=== PATIENT | male | born 1970 | race African-American/Black ===

== ENCOUNTER 2020-05-03 15:06 | Inpatient (IN) | payer OTHER ==
--- NOTE | 2020-05-03 15:34 | BHS.RME ---
Substance Use & Tx History - Substance Use History Alcohol Substance amount: 4 beers 40 oz Frequency of use: Daily Substance route: Oral Date of Last Use: 05/03/20 (started age 14) Cocaine-Crack Substance amount: $40-50 Frequency of use: Daily Substance route: Smoking Date of Last Use: 05/01/20 Nicotine Frequency of use: Daily Substance route: Smoking Date of Last Use: 05/03/20 Physical/Psych/Mental Status - Behavior General Behavior: Increased activity (restlessness, agitation) Eye Contact: Normal - Cooperativeness Cooperativeness: Cooperative - Thinking Thought Processes: Tight, Logical, Goal Directed - Physical Health Problems Is patient presently having any pain?: No Does patient presently have any injuries (include location): No Does patient currently have a fever: No Is patient : No CIWA Nausea/Vomitin Muscle Tremors: 3 Anxiety: 3 Agitation: 3 Paroxysmal Sweats: 2 Orientation: 0-Oriented Tacttile Disturbances: 3-Moderate Itch/Numb/Burn Auditory Disturbances: 0-None Visual Disturbances: 0-None Headache: 0-None Present CIWA-Ar Total Score: 16
[2020-05-03] MEDS ORDERED: ONDANSETRON *ODT* 4 MG TABLET SL PRN (16:00)
[2020-05-03] MEDS ORDERED: MAGNESIUM CITRATE 300 ML BOTTLE PO PRN (16:00)
[2020-05-03] MEDS ORDERED: BISMUTH SUBSALICYLATE 524 MG/30 ML UD PO PRN (16:00)
[2020-05-03] MEDS ORDERED: NICOTINE POLACRILEX 2 MG GUM BUC PRN (16:00)
[2020-05-03] MEDS ORDERED: MENTHOL/PHENOL 1 EACH UD MM PRN (16:00)
[2020-05-03] MEDS ORDERED: IBUPROFEN 400 MG TABLET (FP) PO PRN (16:00)
[2020-05-03] MEDS ORDERED: chlordiazePOXIDE HCL 25 MG CAPSULE PO PRN (16:00)
[2020-05-03] MEDS ORDERED: MAG HYDROX/AL HYDROX/SIMETH 30 ML UNIT-DOSE CUP PO PRN (16:00)
[2020-05-03] MEDS ORDERED: METHOCARBAMOL 500 MG TABLET PO PRN (16:00)
[2020-05-03] MEDS ORDERED: MAGNESIUM HYDROX 2400MG/30ML ORAL SUSPENSION 30 ML CUP PO PRN (16:00)
[2020-05-03] MEDS ORDERED: ACETAMINOPHEN 325 MG TABLET (FP) PO PRN ×2 (16:00)
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
[2020-05-03 16:11] VITALS: BMI 26.1
--- OUTSIDE RECORDS SUMMARY | 2020-05-03 17:12 | XMS ---
:1970 Author Organization [facility] Re-disclosure Warning The records that you are about to access may contain information from federally- assisted alcohol or drug abuse programs. If such information is present, then the following federally mandated warning applies: This information has been disclosed to you from records protected by federal confidentiality rules (42 CFR part 2). The federal rules prohibit you from making any further disclosure of this information unless further disclosure is expressly permitted by the written consent of the person to whom it pertains or as otherwise permitted by 42 CFR part 2. A general authorization for the release of medical or other information is NOT sufficient for this purpose. The Federal rules restrict any use of the information to criminally investigate or prosecute any alcohol or drug abuse patient.The records that you are about to access may contain highly sensitive health information, the redisclosure of which is protected by Article 27-F of the [facility] Public Health law. If you continue you may haveaccess to information: Regarding HIV / AIDS; Provided by facilities licensed or operated by the [facility] Office of Mental Health; or Provided by the [facility] Office for People With Developmental Disabilities. If such information is present, then the following [facility] mandated warning applies: This information has been disclosed to you from confidential records which are protected by state law. State law prohibits you from making any further disclosure of this information without the specific written consent of the person to whom it pertains, or as otherwise permitted by law. Any unauthorized further disclosure in violation of state law may result in a fine or mcfp sentence or both. A general authorization for the release of medical or other information is NOT sufficient authorization for further disclosure. Allergies and Adverse Reactions Type Description Substance Reaction Status Data Source(s ) Propensity to HENDRIX No known allergies hives Active eCW 3 ([facility] [place] adverse reactions (situation) Health Care) Propensity to MUSTARD No known allergies hives Active eCW 3 ([facility] adverse reactions (situation) [facility] Care) Encounters Encounter Providers Location Date Indications Data Source(s ) [facility] [facility] 12/10/2018 eCW3 ([facility] A28 12:00:00 AM Health Care) EDT - 12/10/2018 12:00:00 AM EDT Medications Medication Brand Start Product Dose Route Administrative Pharmacy [facility] Indications Reaction Description Data Name Date Form Instructions Instructions Source(s) DEPAKOTE UNK active DEPAKOTE eCW3 ([facility]) Problems, Conditions, and Diagnoses Code Display Name Description Problem Type Effective Dates Data Source(s) F17.200 Tobacco Tobacco Problem 09/09/2018 eCW3 ([place] dependence dependence 12:00:00 AM [facility] Care) F31.32 Bipolar Bipolar Problem 09/09/2018 eCW3 ([place] affective, affective, 12:00:00 AM [facility] depress, mod depress, mod Care) F31.9 Bipolar affective Bipolar affective Problem 12/18/2016 eCW3 ([place] disorder, disorder, 12:00:00 AM [facility] remission status remission status Ca re) unspecified unspecified Surgeries/Procedures Procedure Description Date Indications Data Source(s) smoking cessation 12/10/2018 eCW3 ([facility] [place] counseling 12:00:00 AM Critical access hospital) Social History Code Duration Value Status Description Data Source(s ) Smoking 12/10/2018 Current Smoker completed Current Smoker eCW3 ( [facility] 12:00:00 AM [facility] Health Ca re) Current Smoker completed Current Smoker eCW3 ( [facility]) Vital Signs ID Date Data Source UNK Name Value Range Interpretation Code Description Data Source(s) Diastolic blood 82 mm[Hg] 82 mm[Hg] eCW3 ([facility]) Systolic blood 145 mm[Hg] 145 mm[Hg] eCW3 ([facility]) Body temperature 97.8 [degF] 97.8 [degF] eCW3 ( [facility]) Heart rate 16 /min 16 /min eCW3 ([facility]) Body mass index 25.98 kg/m2 25.98 kg/m2 eCW3 ([facility] (BMI) [Ratio] [place] [facility]) Body weight 161 [lb_av] 161 [lb_av] eCW3 ([facility]) Body height [in_i] eCW3 ([facility]) Patient Treatment Plan of Care Planned Activity Planned Date Details Description Data Source (s) HERMELINDO [facility] ([facility])
[2020-05-03] MEDS: chlordiazePOXIDE HCL 25 MG CAPSULE PO SCH ×2 (18:07→22:31)
[2020-05-03] MEDS: PRENATAL VITAMINS W/ FOLIC ACID TABLET (FP) PO SCH (18:37)
[2020-05-03] MEDS: hydrOXYzine PAMOATE 25 MG CAPSULE (FP) PO SCH ×2 (18:37→22:32)
[2020-05-03] MEDS: NICOTINE 7 MG/24 HOURS TOPICAL PATCH TD SCH (18:37)
--- OUTSIDE RECORDS SUMMARY | 2020-05-03 18:45 | XMS ---
:1970 Author Organization [facility] Support Name Relationship Address Phone UE Unavailable Unavailable Unavailable LORIE COPELAND SELF / SAME PATIENT [address] [place] [address] Re-disclosure Warning The records that you are [...] is protected by Article 27-F of the [facility] Public Health law. If you continue you may haveaccess to information: Regarding HIV / AIDS; Provided by facilities licensed or operated by the [facility] Office of Mental Health; or Provided by the [facility] Office for People With Developmental Disabilities. If such information is present, then the following [facility] mandated warning applies: This information has [...] law may result in a fine or prison sentence or both. A general authorization for the release of medical or other information is NOT sufficient authorization for further disclosure. Allergies and Adverse Reactions Type Description Substance Reaction Status Data Source(s ) Propensity to HENDRIX No known allergies hives Active W 3 ([facility] adverse reactions (situation) Health Care) Propensity to MUSTARD No known allergies hives Active eCW 3 ([facility] adverse reactions (situation) Health Care) Encounters Encounter Providers Location Date Indications Data Source(s ) [facility] [place] [facility] 12/10/2018 eCW3 ([facility] A28 12:00:00 AM Health Care) EDT - 12/10/2018 12:00:00 AM EDT Medications Medication Brand Start Product Dose Route Administrative Pharmacy [facility] Indications Reaction Description Data Name Date Form Instructions Instructions Source(s) DEPAKOTE UNK active DEPAKOTE eCW3 ([facility]) Insurance Providers Payer name Policy type Policy ID Covered Covered constitution party's Policy P rahul / Coverage constitution party ID relationship to Driscoll Inf ormation type driscoll ELENITA [id number] HEALTH NON CAP Problems, Conditions, and Diagnoses Code Display Name Description Problem Type Effective Dates Data Source(s) F17.200 Tobacco Tobacco Problem 09/09/2018 eCW3 ([place] dependence dependence 12:00:00 AM [facility] Care) F31.32 Bipolar Bipolar Problem 09/09/2018 eCW3 ([place] affective, affective, 12:00:00 AM [facility] depress, mod depress, mod Care) F31.9 Bipolar affective Bipolar affective Problem 12/18/2016 eCW3 ([place] disorder, disorder, 12:00:[address] [facility] remission status remission status Ca re) unspecified unspecified Surgeries/Procedures Procedure Description Date Indications Data Source(s) smoking cessation 12/10/2018 eCW3 ([facility] counseling 12:00:00 AM [facility]) Social History Code Duration Value Status Description Data Source(s ) Smoking 12/10/2018 Current Smoker completed Current Smoker eCW3 ( [facility] 12:00:00 AM [facility] Health Ca re) Current Smoker completed Current Smoker eCW3 ( [facility]) Vital Signs ID Date Data Source UNK Name Value Range Interpretation Code Description Data Source(s) Diastolic blood 82 mm[Hg] 82 mm[Hg] eCW3 ([facility]) Systolic blood 145 mm[Hg] 145 mm[Hg] eCW3 ([facility]) Body temperature 97.8 [degF] 97.8 [degF] eCW3 ( [facility]) Heart rate 16 /min 16 /min eCW3 ([facility]) Body mass index 25.98 kg/m2 25.98 kg/m2 eCW3 (Teodora garcia (BMI) [Ratio] [facility]) Body weight 161 [lb_av] 161 [lb_av] eCW3 ([facility]) Body height [in_i] eCW3 ([facility]) Patient Treatment Plan of Care Planned Activity Planned Date Details Description Data Source (s) HERMELINDO eCW3 ([facility])
[2020-05-03] MEDS: THIAMINE HCL 100 MG TABLET (FP) PO SCH (22:31)
[2020-05-03] MEDS: MELATONIN 5 MG TABLETS PO SCH (22:33)
[2020-05-04] MEDS: hydrOXYzine PAMOATE 25 MG CAPSULE (FP) PO SCH ×2 (05:16→10:21)
[2020-05-04] MEDS: chlordiazePOXIDE HCL 25 MG CAPSULE PO SCH ×4 (05:17→21:58)
[2020-05-04] MEDS: NICOTINE 7 MG/24 HOURS TOPICAL PATCH TD SCH (10:18)
[2020-05-04] MEDS: PRENATAL VITAMINS W/ FOLIC ACID TABLET (FP) PO SCH (10:18)
[2020-05-04 10:26] LABS: HEMATOCRIT 43.1 % (35.4-49); HEMOGLOBIN 13.9 GM/dL (11.7-16.9); MCH 29.3 pg (25.7-33.7); MCHC 32.3 g/dl (32.0-35.9); MEAN CELL VOLUME 90.8 fl (80-96); PLATELET COUNT 278 K/MM3 (134-434); RBC 4.75 M/mm3 (4.00-5.60); RDW 14.8 % (11.9-15.9); WHITE BLOOD COUNT 6.9 K/mm3 (4.0-10.0)
[2020-05-04 10:48] LABS: POTASSIUM 4.8 mmol/L (3.5-5.1)
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
[2020-05-04 11:06] LABS: ALBUMIN 3.7 g/dl (3.4-5.0); BLOOD UREA NITROGEN 20.2 mg/dL (7-18); CALCIUM 9.2 mg/dL (8.5-10.1); TOT PROT 6.8 g/dl (6.4-8.2)
[2020-05-04] MEDS ORDERED: PNEUMOC 13-VAL CONJ-DIP CRM/PF 0.5 ML DISP.SYRIN IM ONE (12:00)
[2020-05-04] MEDS ORDERED: hydrOXYzine PAMOATE 25 MG CAPSULE (FP) PO PRN (12:11)
--- NOTE | 2020-05-04 12:23 | PN ---
S CIWA - CIWA Score Nausea/Vomitin-No Nausea/No Vomiting Muscle Tremors: 3 Anxiety: 2 Agitation: 3 Paroxysmal Sweats: 2 Orientation: 0-Oriented Tacttile Disturbances: 0-None Auditory Disturbances: 0-None Visual Disturbances: 0-None Headache: 0-None Present CIWA-Ar Total Score: 10 S Progress Note (SOAP) Subjective: tired sweats interrupted sleep body aches Objective: 05/04/20 12:13 Vital Signs Temperature 97.1 F L 05/04/20 09:03 Pulse Rate 63 05/04/20 09:03 Respiratory Rate 18 05/04/20 09:03 Blood Pressure 145/75 05/04/20 09:03 O2 Sat by Pulse Oximetry (%) 94 L 05/04/20 05:08 Laboratory Tests 05/04/20 05/04/20 05/04/20 07:45 07:45 07:45 WBC 6.9 RBC 4.75 Hgb 13.9 Hct 43.1 MCV 90.8 MCH 29.3 MCHC 32.3 RDW 14.8 Plt Count 278 MPV 8.0 Sodium 141 Potassium 4.8 Chloride 108 H Carbon Dioxide 26 Anion Gap 7 L BUN 20.2 H Creatinine 1.0 Est GFR (CKD-EPI)AfAm 101.26 Est GFR (CKD-EPI)NonAf 87.37 Random Glucose 79 Calcium 9.2 Total Bilirubin 1.0 AST 17 ALT 30 Alkaline Phosphatase 52 Total Protein 6.8 Albumin 3.7 Syphilis Serology Non-reactive aaox3 lying in bed no acute distress labs noted Assessment: 05/04/20 12:23 withdrawals Plan: continue detox increase fluids
[2020-05-04] MEDS ORDERED: MASKS NR ONE (18:19)
[2020-05-04] MEDS: THIAMINE HCL 100 MG TABLET (FP) PO SCH (21:58)
[2020-05-04] MEDS: traZODone HCL 100 MG TABLET (FP) PO SCH (21:58)
[2020-05-04] MEDS: MELATONIN 5 MG TABLETS PO SCH (21:59)
[2020-05-05] MEDS: chlordiazePOXIDE HCL 25 MG CAPSULE PO SCH ×4 (05:16→22:44)
[2020-05-05] MEDS: NICOTINE 7 MG/24 HOURS TOPICAL PATCH TD SCH (10:26)
[2020-05-05] MEDS: PRENATAL VITAMINS W/ FOLIC ACID TABLET (FP) PO SCH (10:26)
--- NOTE | 2020-05-05 11:09 | PN ---
[facility] CIWA - CIWA Score Nausea/Vomitin-No Nausea/No Vomiting Muscle Tremors: 2 Anxiety: 1-Mildly Anxious Agitation: 1-Slight > Activity Paroxysmal Sweats: 1-Minimal Palms Moist Orientation: 0-Oriented Tacttile Disturbances: 0-None Auditory Disturbances: 0-None Visual Disturbances: 0-None Headache: 0-None Present CIWA-Ar Total Score: 5 BHS Progress Note (SOAP) Subjective: feeling fine little sweats Objective: 05/05/20 11:08 Vital Signs Temperature 97.1 F L 05/05/20 08:34 Pulse Rate 69 05/05/20 08:34 Respiratory Rate 18 05/05/20 08:34 Blood Pressure 135/80 05/05/20 08:34 O2 Sat by Pulse Oximetry (%) 99 05/05/20 08:34 Laboratory Tests 05/03/20 05/04/20 05/04/20 16:00 07:45 07:45 WBC 6.9 RBC 4.75 Hgb 13.9 Hct 43.1 MCV 90.8 MCH 29.3 MCHC 32.3 RDW 14.8 Plt Count 278 MPV 8.0 Sodium Potassium Chloride Carbon Dioxide Anion Gap BUN Creatinine Est GFR (CKD-EPI)AfAm Est GFR (CKD-EPI)NonAf Random Glucose Calcium Total Bilirubin AST ALT Alkaline Phosphatase Total Protein Albumin Syphilis Serology Non-reactive COVID-19 (ELVIE) Not detected 05/04/20 07:45 WBC RBC Hgb Hct MCV MCH MCHC RDW Plt Count MPV Sodium 141 Potassium 4.8 Chloride 108 H Carbon Dioxide 26 Anion Gap 7 L BUN 20.2 H Creatinine 1.0 Est GFR (CKD-EPI)AfAm 101.26 Est GFR (CKD-EPI)NonAf 87.37 Random Glucose 79 Calcium 9.2 Total Bilirubin 1.0 AST 17 ALT 30 Alkaline Phosphatase 52 Total Protein 6.8 Albumin 3.7 Syphilis Serology COVID-19 (ELVIE) aaox3 ambulating no acute distress Assessment: 05/05/20 11:09 mild withdrawals Plan: continue detox
[2020-05-05] MEDS ORDERED: PANTOPRAZOLE 40 MG TABLET PO ONE (18:51)
--- NOTE | 2020-05-05 18:58 | PN ---
[facility] Progress Note Note: Patient was seen and examined by bedside due to a call for epigastric pain. Patient had tenderness in the epigastric region radiating to his RUQ with mildly distended abdomen and hyperactive bowel sounds. Patient stated he has been feeling nauseas this evening. Order was placed for Protonix 40mg PO Once.
[2020-05-05] MEDS: traZODone HCL 100 MG TABLET (FP) PO SCH (22:44)
[2020-05-05] MEDS: MELATONIN 5 MG TABLETS PO SCH (22:44)
[2020-05-05] MEDS: THIAMINE HCL 100 MG TABLET (FP) PO SCH (22:44)
[2020-05-06] MEDS ORDERED: chlordiazePOXIDE HCL 10 MG CAPSULE PO PRN
[2020-05-06] MEDS: chlordiazePOXIDE HCL 10 MG CAPSULE PO SCH ×2 (06:06→10:32)
[2020-05-06] MEDS: PRENATAL VITAMINS W/ FOLIC ACID TABLET (FP) PO SCH (10:30)
[2020-05-06] MEDS: NICOTINE 7 MG/24 HOURS TOPICAL PATCH TD SCH (10:31)
--- NOTE | 2020-05-06 11:19 | PN ---
S CIWA - CIWA Score Nausea/Vomitin-No Nausea/No Vomiting Muscle Tremors: 1-None Visible, but [place] Anxiety: 1-Mildly Anxious Agitation: 0-Normal Activity Paroxysmal Sweats: No Perspiration Orientation: 0-Oriented Tacttile Disturbances: 0-None Auditory Disturbances: 0-None Visual Disturbances: 0-None Headache: 0-None Present CIWA-Ar Total Score: 2 [facility] Progress Note (SOAP) Subjective: no withdrawals feeling better want to go to rehab today Objective: 05/06/20 11:18 Vital Signs Temperature 99.1 F 05/06/20 05:56 Pulse Rate 79 05/06/20 05:56 Respiratory Rate 16 05/06/20 05:56 Blood Pressure 112/67 05/06/20 05:56 O2 Sat by Pulse Oximetry (%) 96 05/06/20 05:56 Laboratory Tests 05/03/20 05/04/20 05/04/20 16:00 07:45 07:45 WBC 6.9 RBC 4.75 Hgb 13.9 Hct 43.1 MCV 90.8 MCH 29.3 MCHC 32.3 RDW 14.8 Plt Count 278 MPV 8.0 Sodium Potassium Chloride Carbon Dioxide Anion Gap BUN Creatinine Est GFR (CKD-EPI)AfAm Est GFR (CKD-EPI)NonAf Random Glucose Calcium Total Bilirubin AST ALT Alkaline Phosphatase Total Protein Albumin Syphilis Serology Non-reactive COVID-19 ([facility]) Not detected 05/04/20 07:45 WBC RBC Hgb Hct MCV MCH MCHC RDW Plt Count MPV Sodium 141 Potassium 4.8 Chloride 108 H Carbon Dioxide 26 Anion Gap 7 L BUN 20.2 H Creatinine 1.0 Est GFR (CKD-EPI)AfAm 101.26 Est GFR (CKD-EPI)NonAf 87.37 Random Glucose 79 Calcium 9.2 Total Bilirubin 1.0 AST 17 ALT 30 Alkaline Phosphatase 52 Total Protein 6.8 Albumin 3.7 Syphilis Serology COVID-19 ([facility]) aaox3 ambulating no acute distress Assessment: 05/06/20 11:18 no s/s of withdrawal noted Plan: d/c to rehab today
--- NOTE | 2020-05-06 11:20 | DS ---
[facility] Detox Discharge Summary Admission Date: 05/03/20 Discharge Date: 05/06/20 - History Present History: Alcohol Dependence, Cannabis Dependence, Cocaine Dependence - Physical Exam Results Vital Signs: Vital Signs Temperature 99.1 F 05/06/20 05:56 Pulse Rate 79 05/06/20 05:56 Respiratory Rate 16 05/06/20 05:56 Blood Pressure 112/67 05/06/20 05:56 O2 Sat by Pulse Oximetry (%) 96 05/06/20 05:56 Pertinent Admission Physical Exam Findings: Vital Signs Temperature 99.1 F 05/06/20 05:56 Pulse Rate 79 05/06/20 05:56 Respiratory Rate 16 05/06/20 05:56 Blood Pressure 112/67 05/06/20 05:56 O2 Sat by Pulse Oximetry (%) 96 05/06/20 05:56 Laboratory Tests 05/03/20 05/04/20 05/04/20 16:00 07:45 07:45 WBC 6.9 RBC 4.75 Hgb 13.9 Hct 43.1 MCV 90.8 MCH 29.3 MCHC 32.3 RDW 14.8 Plt Count 278 MPV 8.0 Sodium Potassium Chloride Carbon Dioxide Anion Gap BUN Creatinine Est GFR (CKD-EPI)AfAm Est GFR (CKD-EPI)NonAf Random Glucose Calcium Total Bilirubin AST ALT Alkaline Phosphatase Total Protein Albumin Syphilis Serology Non-reactive COVID-19 ([facility]) Not detected 05/04/20 07:45 WBC RBC Hgb Hct MCV MCH MCHC RDW Plt Count MPV Sodium 141 Potassium 4.8 Chloride 108 H Carbon Dioxide 26 Anion Gap 7 L BUN 20.2 H Creatinine 1.0 Est GFR (CKD-EPI)AfAm 101.26 Est GFR (CKD-EPI)NonAf 87.37 Random Glucose 79 Calcium 9.2 Total Bilirubin 1.0 AST 17 ALT 30 Alkaline Phosphatase 52 Total Protein 6.8 Albumin 3.7 Syphilis Serology COVID-19 ([facility]) aaox3 ambulating no acute distress lungs CTA - Treatment Hospital Course: Detox Protocol Followed, Detoxed Safely, Responded well, Discharged Condition Good, Rehab Referral Accepted - Medication Discharge Medications: Ambulatory Orders Benztropine Mesylate [Cogentin -] 0.5 mg PO BID #60 tablet 05/03/16 Risperidone [Risperdal] 1 mg PO BID #60 tablet 05/03/16 Divalproex [Depakote -] 500 mg PO BID 05/03/20 - Diagnosis (1) Alcohol dependence with uncomplicated withdrawal Current Visit: Yes Status: Acute (2) Cannabis dependence Current Visit: Yes Status: Acute (3) Cocaine dependence Current Visit: Yes Status: Acute Qualifiers: Substance use status: uncomplicated Qualified Code(s): F14.20 - Cocaine dependence, uncomplicated (4) Nicotine dependence Current Visit: Yes Status: Chronic Qualifiers: Nicotine product type: cigarettes Substance use status: uncomplicated Qualified Code(s): F17.210 - Nicotine dependence, cigarettes, uncomplicated (5) Anemia Current Visit: Yes Status: Resolved (6) Atypical chest pain Current Visit: No Status: Acute (7) Chronic sinusitis Current Visit: No Status: Acute (8) Substance induced mood disorder Current Visit: No Status: Acute (9) Substance-induced sleep disorder Current Visit: No Status: Acute (10) Weight loss Current Visit: No Status: Acute (11) Bipolar disorder Current Visit: No Status: Chronic (12) S/P craniotomy Current Visit: No Status: Resolved - AMA Did Patient Leave Against Medical Advice: No
[2020-05-06 13:11] VITALS: BP 143/73; PULSE 70; TEMP 98
[2020-05-07] MEDS ORDERED: chlordiazePOXIDE HCL 10 MG CAPSULE PO SCH (05:00)
[2020-05-08] MEDS ORDERED: chlordiazePOXIDE HCL 10 MG CAPSULE PO ONE (05:00)
== END 2020-05-06 15:36 | disposition other institution (70) | DRG 774 ==
LOC: YASAS 15:06 → Y6N 16:23
PROVIDERS: ADMIT Allergy & Immunology; ATTEND Allergy & Immunology
PROC: HZ2ZZZZ Detoxification Services for Substance Abuse Treatment (ICD-10-PCS; principal; 2020-05-03)
DX: F10.230 Alcohol dependence with withdrawal, uncomplicated (principal); F14.20 Cocaine dependence, uncomplicated; F12.20 Cannabis dependence, uncomplicated; F17.210 Nicotine dependence, cigarettes, uncomplicated; F19.282 Other psychoactive substance dependence with psychoactive substance-induced sleep disorder; F19.24 Other psychoactive substance dependence with psychoactive substance-induced mood disorder; F31.9 Bipolar disorder, unspecified; J32.9 Chronic sinusitis, unspecified; R07.89 Other chest pain; R10.13 Epigastric pain; R63.4 Abnormal weight loss; Z68.26 Body mass index [BMI] 26.0-26.9, adult; Z86.2 Personal history of diseases of the blood and blood-forming organs and certain disorders involving the immune mechanism; Z98.890 Other specified postprocedural states; Z91.018 Allergy to other foods
CPT/HCPCS: 36415; 80053; 85027; 86780; 87389; U0003

== ENCOUNTER 2020-05-06 15:42 | Inpatient (IN) | payer OTHER ==
--- NOTE | 2020-05-06 15:04 | HP ---
[facility] Rehab Assess/Revision - Admission History Admitted to Rehab from[facility] - Findings Detox History & Physical reviewed: Yes Concur with findings: Yes Inpatient Rehab Admission - Rehab Decision to Admit Inpatient rehab admission?: Yes - Initial Determination Are CD services needed?: Yes Free of communicable disease: Yes Not in need of hospitalization: Yes - Rehab Admission Criteria Previous failed treatment: Yes Poor recovery environment: Yes Comorbidities: Yes Lacks judgement: Yes Patient is meeting Inpatient Rehab admission criteria:: Yes
[~2020-05-06 15:42] MED LIST: ACETAMINOPHEN 325 MG TABLET (FP) PO PRN; IBUPROFEN 400 MG TABLET (FP) PO PRN; LOPERAMIDE HCL 2 MG CAPSULE PO PRN; MAG HYDROX/AL HYDROX/SIMETH 30 ML UNIT-DOSE CUP PO PRN; MAGNESIUM CITRATE 300 ML BOTTLE PO PRN; MAGNESIUM HYDROX 2400MG/30ML ORAL SUSPENSION 30 ML CUP PO PRN; MENTHOL/PHENOL 1 EACH UD MM PRN; NICOTINE POLACRILEX 2 MG GUM BUC PRN; P-EPHED 60MG/TRIPROLIDI 2.5MG TABLET PO PRN; guaiFENesin 200 MG/10 ML 10 ML UNIT-DOSE CUPS PO PRN; hydrOXYzine PAMOATE 25 MG CAPSULE (FP) PO PRN
[2020-05-06 17:44] VITALS: BP 113/69; PULSE 78; TEMP 98.4
--- NOTE | 2020-05-06 18:31 | PN ---
[facility] Progress Note Note: Patient transferred to rehab from , a few hours ago and decided not to stay. Patient was early remission for alcohol use disorder. Patient left unit AMA prior to being seen by this provider.
--- NOTE | 2020-05-06 18:32 | DS ---
[facility] Detox Discharge Summary Admission Date: 05/06/20 Discharge Date: 05/06/20 - Physical Exam Results Vital Signs: Vital Signs Temperature 98.4 F 05/06/20 15:43 Pulse Rate 78 05/06/20 15:43 Respiratory Rate 18 05/06/20 15:43 Blood Pressure 113/69 05/06/20 15:43 O2 Sat by Pulse Oximetry (%) 98 05/06/20 15:43 - Medication Discharge Medications: Ambulatory Orders Benztropine Mesylate [Cogentin -] 0.5 mg PO BID #60 tablet 05/03/16 Risperidone [Risperdal] 1 mg PO BID #60 tablet 05/03/16 Divalproex [Depakote -] 500 mg PO BID 05/03/20
--- NOTE | 2020-05-06 18:33 | DS ---
[facility] Rehab Discharge Summary - [facility] Rehab Discharge Summary Admission Date: 05/06/20 Discharge Date: 05/06/20 - History Present History: Alcohol dependence, Cannabis dependence, Cocaine dependence - Discharge Physical Exam Vital Signs: Vital Signs Temperature 98.4 F 05/06/20 15:43 Pulse Rate 78 05/06/20 15:43 Respiratory Rate 18 05/06/20 15:43 Blood Pressure 113/69 05/06/20 15:43 O2 Sat by Pulse Oximetry (%) 98 05/06/20 15:43 - Treatment Discharge Condition: Discharge condition good (Patient transferred to rehab from , a few hours ago and decided not to stay. Patient left unit AMA prior to being seen by this provider.) - Medication Discharge Medications: Ambulatory Orders Benztropine Mesylate [Cogentin -] 0.5 mg PO BID #60 tablet 05/03/16 Risperidone [Risperdal] 1 mg PO BID #60 tablet 05/03/16 Divalproex [Depakote -] 500 mg PO BID 05/03/20 - Medication-Assisted Treatment (MAT) Medication-Assisted Treatment (MAT): No - Discharge Instructions Diet, activity, other medical instructions: Diet: Activity: Other medical instructions: - Diagnosis (1) Moderate alcohol dependence in early remission Status: Acute (2) Cannabis dependence Status: Chronic (3) Cocaine dependence Status: Chronic Qualifiers: Substance use status: uncomplicated Qualified Code(s): F14.20 - Cocaine dependence, uncomplicated (4) Nicotine dependence Status: Chronic Qualifiers: Nicotine product type: cigarettes Substance use status: uncomplicated Qualified Code(s): F17.210 - Nicotine dependence, cigarettes, uncomplicated - Follow-up Referral Minutes to complete discharge: 15 - AMA Did Patient Leave Against Medical Advice: Yes Additional Comments: Patient transferred to rehab from , a few hours ago and decided not to stay. Patient left unit AMA prior to being seen by this provider.
[2020-05-06] MEDS ORDERED: MELATONIN 5 MG TABLETS PO SCH (22:00)
[2020-05-06] MEDS ORDERED: THIAMINE HCL 100 MG TABLET (FP) PO SCH (22:00)
[2020-05-07] MEDS ORDERED: PRENATAL VITAMINS W/ FOLIC ACID TABLET (FP) PO SCH (10:00)
[2020-05-07] MEDS ORDERED: NICOTINE 21 MG/24 HOURS TOPICAL PATCH TD SCH (10:00)
== END 2020-05-06 18:30 | disposition left against medical advice (07) | DRG 770 ==
LOC: YASAS 15:42 → Y5N 15:43
PROVIDERS: ADMIT Allergy & Immunology; ATTEND Allergy & Immunology
PROC: HZ42ZZZ Group Counseling for Substance Abuse Treatment, Cognitive-Behavioral (ICD-10-PCS; principal; 2020-05-06)
DX: F10.20 Alcohol dependence, uncomplicated (principal); F14.20 Cocaine dependence, uncomplicated; F12.20 Cannabis dependence, uncomplicated; F17.210 Nicotine dependence, cigarettes, uncomplicated

== ENCOUNTER 2020-07-18 10:48 | Inpatient (IN) | payer OTHER ==
[2020-07-18 11:49] VITALS: BMI 29.2
[2020-07-18] MEDS ORDERED: IBUPROFEN 400 MG TABLET (FP) PO PRN (12:27)
[2020-07-18] MEDS ORDERED: METHOCARBAMOL 500 MG TABLET PO PRN (12:27)
[2020-07-18] MEDS ORDERED: NICOTINE POLACRILEX 2 MG GUM BUC PRN (12:27)
[2020-07-18] MEDS ORDERED: BISMUTH SUBSALICYLATE 262 MG/15 ML BTL PO PRN (12:27)
[2020-07-18] MEDS ORDERED: ACETAMINOPHEN 325 MG TABLET (FP) PO PRN ×2 (12:27)
[2020-07-18] MEDS ORDERED: ONDANSETRON *ODT* 4 MG TABLET SL PRN (12:27)
[2020-07-18] MEDS ORDERED: MAG HYDROX/AL HYDROX/SIMETH 30 ML UNIT-DOSE CUP PO PRN (12:27)
[2020-07-18] MEDS ORDERED: MAGNESIUM CITRATE 300 ML BOTTLE PO PRN (12:27)
[2020-07-18] MEDS ORDERED: MAGNESIUM HYDROX 2400MG/30ML ORAL SUSPENSION 30 ML CUP PO PRN (12:27)
[2020-07-18] MEDS ORDERED: MENTHOL/PHENOL 1 EACH UD MM PRN (12:27)
[2020-07-18] MEDS: NICOTINE 21 MG/24 HOURS TOPICAL PATCH TD SCH (13:15)
[2020-07-18] MEDS: hydrOXYzine PAMOATE 25 MG CAPSULE (FP) PO SCH ×4 (13:15→22:50)
[2020-07-18] MEDS: chlordiazePOXIDE HCL 25 MG CAPSULE PO PRN (13:15)
[2020-07-18 14:01] LABS: HEMATOCRIT 42.6 % (35.4-49); HEMOGLOBIN 13.4 GM/dL (11.7-16.9); MCH 26.9 pg (25.7-33.7); MCHC 31.5 g/dl (32.0-35.9); MEAN CELL VOLUME 85.4 fl (80-96); MEAN PLT VOLUME 7.7 fl (7.5-11.1); PLATELET COUNT 293 K/MM3 (134-434); RBC 4.99 M/mm3 (4.00-5.60); RDW 14.3 % (11.9-15.9); WHITE BLOOD COUNT 6.5 K/mm3 (4.0-10.0)
[2020-07-18 14:02] LABS: POTASSIUM 4.3 mmol/L (3.5-5.1)
[2020-07-18 14:04] LABS: BLOOD UREA NITROGEN 26.7 mg/dL (7-18); CALCIUM 9.5 mg/dL (8.5-10.1)
[2020-07-18 14:07] LABS: CREATININE 1.3 mg/dL (0.55-1.3)
[2020-07-18 14:09] LABS: BILIRUBIN,TOTAL 0.5 mg/dL (0.2-1); TOT PROT 7.2 g/dl (6.4-8.2)
[2020-07-18] MEDS: chlordiazePOXIDE HCL 25 MG CAPSULE PO SCH ×3 (17:20→22:49)
[2020-07-18] MEDS: MELATONIN 5 MG TABLETS PO SCH ×2 (22:26→22:50)
[2020-07-18] MEDS: THIAMINE HCL 100 MG TABLET (FP) PO SCH ×2 (22:27→22:50)
[2020-07-19] MEDS: hydrOXYzine PAMOATE 25 MG CAPSULE (FP) PO SCH ×5 (05:38→22:47)
[2020-07-19] MEDS: chlordiazePOXIDE HCL 25 MG CAPSULE PO SCH ×4 (05:38→22:47)
[2020-07-19] MEDS: PRENATAL VITAMINS W/ FOLIC ACID TABLET (FP) PO SCH (10:28)
[2020-07-19] MEDS: NICOTINE 21 MG/24 HOURS TOPICAL PATCH TD SCH (10:29)
[2020-07-19] MEDS: THIAMINE HCL 100 MG TABLET (FP) PO SCH (22:46)
[2020-07-19] MEDS: risperiDONE 1 MG TABLET PO SCH (22:47)
[2020-07-19] MEDS: traZODone HCL 50 MG TABLET (FP) PO SCH (22:48)
[2020-07-19] MEDS: MELATONIN 5 MG TABLETS PO SCH (22:48)
[2020-07-20] MEDS: hydrOXYzine PAMOATE 25 MG CAPSULE (FP) PO SCH ×5 (07:04→22:54)
[2020-07-20] MEDS: chlordiazePOXIDE HCL 25 MG CAPSULE PO SCH ×4 (07:04→22:42)
[2020-07-20] MEDS: chlordiazePOXIDE HCL 25 MG CAPSULE PO PRN (08:47)
[2020-07-20] MEDS: risperiDONE 1 MG TABLET PO SCH ×2 (10:31→22:54)
[2020-07-20] MEDS: PRENATAL VITAMINS W/ FOLIC ACID TABLET (FP) PO SCH (10:31)
[2020-07-20] MEDS: BENZTROPINE MESYLATE 1 MG TABLET PO SCH (10:31)
[2020-07-20] MEDS: NICOTINE 21 MG/24 HOURS TOPICAL PATCH TD SCH (10:32)
[2020-07-20] MEDS: MELATONIN 5 MG TABLETS PO SCH (22:54)
[2020-07-20] MEDS: THIAMINE HCL 100 MG TABLET (FP) PO SCH (22:54)
[2020-07-20] MEDS: traZODone HCL 50 MG TABLET (FP) PO SCH (22:54)
[2020-07-21] MEDS ORDERED: chlordiazePOXIDE HCL 10 MG CAPSULE PO PRN
[2020-07-21] MEDS: chlordiazePOXIDE HCL 10 MG CAPSULE PO SCH ×4 (05:41→22:32)
[2020-07-21] MEDS: hydrOXYzine PAMOATE 25 MG CAPSULE (FP) PO SCH ×5 (05:41→22:32)
[2020-07-21] MEDS: risperiDONE 1 MG TABLET PO SCH ×2 (10:01→22:32)
[2020-07-21] MEDS: PRENATAL VITAMINS W/ FOLIC ACID TABLET (FP) PO SCH (10:01)
[2020-07-21] MEDS: BENZTROPINE MESYLATE 1 MG TABLET PO SCH (10:02)
[2020-07-21] MEDS: NICOTINE 21 MG/24 HOURS TOPICAL PATCH TD SCH (10:04)
[2020-07-21 14:11] LABS: HIV INTERPRETATION NEGATIVE (NEGATIVE)
[2020-07-21] MEDS ORDERED: DIVALPROEX SODIUM 500 MG TABLET E.C. PO SCH (22:00)
[2020-07-21] MEDS: DIVALPROEX SODIUM 250 MG TABLET E.C. PO SCH (22:32)
[2020-07-21] MEDS: THIAMINE HCL 100 MG TABLET (FP) PO SCH (22:32)
[2020-07-21] MEDS: MELATONIN 5 MG TABLETS PO SCH (22:32)
[2020-07-21] MEDS: traZODone HCL 50 MG TABLET (FP) PO SCH (22:33)
[2020-07-22] MEDS: hydrOXYzine PAMOATE 25 MG CAPSULE (FP) PO SCH ×5 (06:35→22:12)
[2020-07-22] MEDS: chlordiazePOXIDE HCL 10 MG CAPSULE PO SCH ×2 (06:36→17:24)
[2020-07-22] MEDS: BENZTROPINE MESYLATE 1 MG TABLET PO SCH (10:20)
[2020-07-22] MEDS: risperiDONE 1 MG TABLET PO SCH ×2 (10:20→22:12)
[2020-07-22] MEDS: NICOTINE 21 MG/24 HOURS TOPICAL PATCH TD SCH (10:20)
[2020-07-22] MEDS: DIVALPROEX SODIUM 250 MG TABLET E.C. PO SCH ×2 (10:20→22:12)
[2020-07-22] MEDS: PRENATAL VITAMINS W/ FOLIC ACID TABLET (FP) PO SCH (10:20)
[2020-07-22] MEDS: traZODone HCL 50 MG TABLET (FP) PO SCH (22:12)
[2020-07-22] MEDS: THIAMINE HCL 100 MG TABLET (FP) PO SCH (22:12)
[2020-07-22] MEDS: MELATONIN 5 MG TABLETS PO SCH (22:12)
[2020-07-23] MEDS ORDERED: chlordiazePOXIDE HCL 10 MG CAPSULE PO ONE (05:00)
[2020-07-23] MEDS: hydrOXYzine PAMOATE 25 MG CAPSULE (FP) PO SCH ×3 (06:26→13:14)
[2020-07-23] MEDS: DIVALPROEX SODIUM 250 MG TABLET E.C. PO SCH (10:08)
[2020-07-23] MEDS: risperiDONE 1 MG TABLET PO SCH (10:08)
[2020-07-23] MEDS: PRENATAL VITAMINS W/ FOLIC ACID TABLET (FP) PO SCH (10:08)
[2020-07-23] MEDS: BENZTROPINE MESYLATE 1 MG TABLET PO SCH (10:09)
[2020-07-23] MEDS: NICOTINE 21 MG/24 HOURS TOPICAL PATCH TD SCH (10:09)
[2020-07-23 13:11] VITALS: BP 156/87; PULSE 110; TEMP 97.8
== END 2020-07-23 13:45 | disposition other institution (70) | DRG 774 ==
LOC: YASAS 10:48 → Y3N 12:15
PROVIDERS: ADMIT Allergy & Immunology; ATTEND Allergy & Immunology
PROC: HZ2ZZZZ Detoxification Services for Substance Abuse Treatment (ICD-10-PCS; principal; 2020-07-18)
DX: F10.230 Alcohol dependence with withdrawal, uncomplicated (principal); F14.20 Cocaine dependence, uncomplicated; F12.20 Cannabis dependence, uncomplicated; F17.210 Nicotine dependence, cigarettes, uncomplicated; F19.24 Other psychoactive substance dependence with psychoactive substance-induced mood disorder; F19.282 Other psychoactive substance dependence with psychoactive substance-induced sleep disorder; F31.89 Other bipolar disorder; R73.09 Other abnormal glucose; G47.00 Insomnia, unspecified; Z91.018 Allergy to other foods; Z91.19 Patient's noncompliance with other medical treatment and regimen
CPT/HCPCS: 36415; 80053; 82947; 85027; 86780; 87389; C9803; J2794; U0003

== ENCOUNTER 2020-07-23 13:31 | Inpatient (IN) | payer OTHER ==
[2020-07-23] MEDS ORDERED: MENTHOL/PHENOL 1 EACH UD MM PRN (14:32)
[2020-07-23] MEDS ORDERED: NICOTINE POLACRILEX 2 MG GUM BUC PRN (14:32)
[2020-07-23] MEDS ORDERED: LOPERAMIDE HCL 2 MG CAPSULE PO PRN (14:32)
[2020-07-23] MEDS ORDERED: ACETAMINOPHEN 325 MG TABLET (FP) PO PRN (14:32)
[2020-07-23] MEDS ORDERED: MAGNESIUM CITRATE 300 ML BOTTLE PO PRN (14:32)
[2020-07-23] MEDS ORDERED: MAG HYDROX/AL HYDROX/SIMETH 30 ML UNIT-DOSE CUP PO PRN (14:32)
[2020-07-23] MEDS ORDERED: P-EPHED 60MG/TRIPROLIDI 2.5MG TABLET PO PRN (14:32)
[2020-07-23] MEDS ORDERED: guaiFENesin 200 MG/10 ML 10 ML UNIT-DOSE CUPS PO PRN (14:32)
[2020-07-23] MEDS ORDERED: MAGNESIUM HYDROX 2400MG/30ML ORAL SUSPENSION 30 ML CUP PO PRN (14:32)
[2020-07-23] MEDS ORDERED: IBUPROFEN 400 MG TABLET (FP) PO PRN (14:32)
[2020-07-23] MEDS: THIAMINE HCL 100 MG TABLET (FP) PO SCH (21:47)
[2020-07-23] MEDS: MELATONIN 5 MG TABLETS PO SCH (21:47)
[2020-07-23] MEDS: hydrOXYzine PAMOATE 25 MG CAPSULE (FP) PO PRN (21:48)
[2020-07-24] MEDS: PRENATAL VITAMINS W/ FOLIC ACID TABLET (FP) PO SCH (09:33)
[2020-07-24] MEDS: NICOTINE 7 MG/24 HOURS TOPICAL PATCH TD SCH (09:33)
[2020-07-24] MEDS ORDERED: NICOTINE 7 MG/24 HOURS TOPICAL PATCH TD SCH (10:00)
[2020-07-24] MEDS: MELATONIN 5 MG TABLETS PO SCH (22:05)
[2020-07-24] MEDS: THIAMINE HCL 100 MG TABLET (FP) PO SCH (22:05)
[2020-07-25] MEDS ORDERED: MASKS NR ONE (06:38)
[2020-07-25] MEDS: PRENATAL VITAMINS W/ FOLIC ACID TABLET (FP) PO SCH (09:42)
[2020-07-25] MEDS: NICOTINE 7 MG/24 HOURS TOPICAL PATCH TD SCH (09:42)
[2020-07-25] MEDS: THIAMINE HCL 100 MG TABLET (FP) PO SCH (22:37)
[2020-07-25] MEDS: MELATONIN 5 MG TABLETS PO SCH (22:37)
[2020-07-26] MEDS: PRENATAL VITAMINS W/ FOLIC ACID TABLET (FP) PO SCH (09:43)
[2020-07-26] MEDS: hydrOXYzine PAMOATE 25 MG CAPSULE (FP) PO PRN ×2 (09:44→21:24)
[2020-07-26] MEDS: NICOTINE 7 MG/24 HOURS TOPICAL PATCH TD SCH (09:44)
[2020-07-26] MEDS: MELATONIN 5 MG TABLETS PO SCH (21:24)
[2020-07-26] MEDS: THIAMINE HCL 100 MG TABLET (FP) PO SCH (21:24)
[2020-07-27] MEDS: PRENATAL VITAMINS W/ FOLIC ACID TABLET (FP) PO SCH (09:57)
[2020-07-27] MEDS: NICOTINE 7 MG/24 HOURS TOPICAL PATCH TD SCH (09:57)
[2020-07-27] MEDS: NICOTINE 21 MG/24 HOURS TOPICAL PATCH TD SCH (10:36)
[2020-07-27] MEDS: MELATONIN 5 MG TABLETS PO SCH (21:38)
[2020-07-27] MEDS: hydrOXYzine PAMOATE 25 MG CAPSULE (FP) PO PRN (21:38)
[2020-07-27] MEDS: THIAMINE HCL 100 MG TABLET (FP) PO SCH (21:38)
[2020-07-28] MEDS: NICOTINE 21 MG/24 HOURS TOPICAL PATCH TD SCH (09:35)
[2020-07-28] MEDS: PRENATAL VITAMINS W/ FOLIC ACID TABLET (FP) PO SCH (09:35)
[2020-07-28] MEDS: THIAMINE HCL 100 MG TABLET (FP) PO SCH (21:36)
[2020-07-28] MEDS: BENZTROPINE MESYLATE 1 MG TABLET PO SCH (21:37)
[2020-07-28] MEDS: hydrOXYzine PAMOATE 25 MG CAPSULE (FP) PO PRN (21:37)
[2020-07-28] MEDS: MELATONIN 5 MG TABLETS PO SCH (21:37)
[2020-07-28] MEDS: risperiDONE 1 MG TABLET PO SCH (21:37)
[2020-07-28] MEDS ORDERED: traZODone HCL 50 MG TABLET (FP) PO SCH (22:00)
[2020-07-29] MEDS: NICOTINE 21 MG/24 HOURS TOPICAL PATCH TD SCH (09:57)
[2020-07-29] MEDS: PRENATAL VITAMINS W/ FOLIC ACID TABLET (FP) PO SCH (09:57)
[2020-07-29] MEDS: risperiDONE 1 MG TABLET PO SCH ×2 (09:58→21:44)
[2020-07-29] MEDS: BENZTROPINE MESYLATE 1 MG TABLET PO SCH (21:44)
[2020-07-29] MEDS: traZODone HCL 100 MG TABLET (FP) PO SCH (21:44)
[2020-07-29] MEDS: MELATONIN 5 MG TABLETS PO SCH (21:44)
[2020-07-29] MEDS: THIAMINE HCL 100 MG TABLET (FP) PO SCH (21:44)
[2020-07-30] MEDS: risperiDONE 1 MG TABLET PO SCH ×2 (09:49→21:12)
[2020-07-30] MEDS: NICOTINE 21 MG/24 HOURS TOPICAL PATCH TD SCH (09:49)
[2020-07-30] MEDS: hydrOXYzine PAMOATE 25 MG CAPSULE (FP) PO PRN ×2 (09:49→21:12)
[2020-07-30] MEDS: PRENATAL VITAMINS W/ FOLIC ACID TABLET (FP) PO SCH (09:49)
[2020-07-30] MEDS: BENZTROPINE MESYLATE 1 MG TABLET PO SCH (21:11)
[2020-07-30] MEDS: THIAMINE HCL 100 MG TABLET (FP) PO SCH (21:12)
[2020-07-30] MEDS: traZODone HCL 100 MG TABLET (FP) PO SCH (21:12)
[2020-07-30] MEDS: MELATONIN 5 MG TABLETS PO SCH (21:12)
[2020-07-31 07:05] VITALS: BP 109/60; PULSE 71; TEMP 97.7
[2020-07-31] MEDS: PRENATAL VITAMINS W/ FOLIC ACID TABLET (FP) PO SCH (10:24)
[2020-07-31] MEDS: risperiDONE 1 MG TABLET PO SCH ×2 (10:24→21:40)
[2020-07-31] MEDS: hydrOXYzine PAMOATE 25 MG CAPSULE (FP) PO PRN ×2 (10:25→21:40)
[2020-07-31] MEDS: NICOTINE 21 MG/24 HOURS TOPICAL PATCH TD SCH (10:25)
[2020-07-31] MEDS: traZODone HCL 100 MG TABLET (FP) PO SCH (21:41)
[2020-07-31] MEDS: MELATONIN 5 MG TABLETS PO SCH (21:41)
[2020-07-31] MEDS: BENZTROPINE MESYLATE 1 MG TABLET PO SCH (21:41)
[2020-07-31] MEDS: THIAMINE HCL 100 MG TABLET (FP) PO SCH (21:41)
[2020-08-01] MEDS: PRENATAL VITAMINS W/ FOLIC ACID TABLET (FP) PO SCH (09:44)
[2020-08-01] MEDS: risperiDONE 1 MG TABLET PO SCH (09:44)
[2020-08-01] MEDS: NICOTINE 21 MG/24 HOURS TOPICAL PATCH TD SCH (09:44)
[2020-08-01] MEDS: hydrOXYzine PAMOATE 25 MG CAPSULE (FP) PO PRN (09:44)
== END 2020-08-01 10:30 | disposition home or self-care (01) | DRG 772 ==
LOC: YASAS 13:31 → Y5N 13:32
PROVIDERS: ADMIT Allergy & Immunology; ATTEND Allergy & Immunology
PROC: HZ42ZZZ Group Counseling for Substance Abuse Treatment, Cognitive-Behavioral (ICD-10-PCS; principal; 2020-07-23)
DX: F10.20 Alcohol dependence, uncomplicated (principal); F14.20 Cocaine dependence, uncomplicated; F12.20 Cannabis dependence, uncomplicated; F17.210 Nicotine dependence, cigarettes, uncomplicated; F31.9 Bipolar disorder, unspecified; F19.282 Other psychoactive substance dependence with psychoactive substance-induced sleep disorder; E66.9 Obesity, unspecified; Z68.31 Body mass index [BMI] 31.0-31.9, adult; Z87.820 Personal history of traumatic brain injury; Z98.890 Other specified postprocedural states
CPT/HCPCS: C9803; J2794; U0003

== ENCOUNTER 2021-04-10 10:16 | Inpatient (IN) | payer OTHER ==
[2021-04-10 11:09] VITALS: BMI 27.9
[2021-04-10] MEDS ORDERED: MAGNESIUM CITRATE 300 ML BOTTLE PO PRN (12:50)
[2021-04-10] MEDS ORDERED: ONDANSETRON *ODT* 4 MG TABLET SL PRN (12:50)
[2021-04-10] MEDS ORDERED: ACETAMINOPHEN 325 MG TABLET (FP) PO PRN ×2 (12:50)
[2021-04-10] MEDS ORDERED: MAGNESIUM HYDROX 2400MG/30ML ORAL SUSPENSION 30 ML CUP PO PRN (12:50)
[2021-04-10] MEDS ORDERED: BISMUTH SUBSALICYLATE 524 MG/30 ML PO PRN (12:50)
[2021-04-10] MEDS ORDERED: MAG HYDROX/AL HYDROX/SIMETH 30 ML UNIT-DOSE CUP PO PRN (12:50)
[2021-04-10] MEDS ORDERED: METHOCARBAMOL 500 MG TABLET PO PRN (12:50)
[2021-04-10] MEDS ORDERED: MENTHOL/PHENOL 1 EACH UD MM PRN (12:50)
[2021-04-10] MEDS ORDERED: IBUPROFEN 400 MG TABLET (FP) PO PRN (12:50)
[2021-04-10] MEDS ORDERED: NICOTINE POLACRILEX 2 MG GUM BUC PRN (12:50)
[2021-04-10] MEDS: diazePAM 5 MG TABLET PO PRN (14:14)
[2021-04-10] MEDS: hydrOXYzine PAMOATE 25 MG CAPSULE (FP) PO SCH ×3 (14:14→22:40)
[2021-04-10] MEDS: diazePAM 5 MG TABLET PO SCH ×2 (17:24→22:40)
[2021-04-10] MEDS: MELATONIN 5 MG TABLETS PO SCH (22:39)
[2021-04-10] MEDS: THIAMINE HCL 100 MG TABLET (FP) PO SCH (22:40)
[2021-04-11] MEDS: hydrOXYzine PAMOATE 25 MG CAPSULE (FP) PO SCH ×2 (06:49→10:04)
[2021-04-11] MEDS: diazePAM 5 MG TABLET PO SCH ×4 (06:49→22:04)
[2021-04-11] MEDS: NICOTINE 21 MG/24 HOURS TOPICAL PATCH TD SCH (10:04)
[2021-04-11] MEDS: PRENATAL VITAMINS W/ FOLIC ACID TABLET (FP) PO SCH (10:04)
[2021-04-11] MEDS: NICOTINE 10 MG CARTRIDGE (INHALER) IH PRN (10:05)
[2021-04-11 11:31] LABS: HEMOGLOBIN 13.8 GM/dL (11.7-16.9); MCH 28.7 pg (25.7-33.7); MCHC 32.8 g/dl (32.0-35.9); MEAN CELL VOLUME 87.4 fl (80-96); MEAN PLT VOLUME 8.6 fl (7.5-11.1); PLATELET COUNT 269 10^3/uL (134-434); RBC 4.81 M/mm3 (4.00-5.60); RDW 14.7 % (11.9-15.9); WHITE BLOOD COUNT 5.5 K/mm3 (4.0-10.0)
[2021-04-11 11:37] LABS: CALCIUM 9.1 mg/dL (8.5-10.1)
[2021-04-11 11:38] LABS: BLOOD UREA NITROGEN 18.6 mg/dL (7-18)
[2021-04-11 11:41] LABS: ALBUMIN 3.9 g/dl (3.4-5.0); CREATININE 1.2 mg/dL (0.55-1.3)
[2021-04-11 11:43] LABS: BILIRUBIN,TOTAL 0.3 mg/dL (0.2-1); TOT PROT 7.2 g/dl (6.4-8.2)
[2021-04-11] MEDS ORDERED: hydrOXYzine PAMOATE 25 MG CAPSULE (FP) PO PRN (12:49)
[2021-04-11] MEDS ORDERED: DIVALPROEX SODIUM 250 MG TABLET E.C. PO SCH (22:00)
[2021-04-11] MEDS ORDERED: traZODone HCL 100 MG TABLET (FP) PO SCH (22:00)
[2021-04-11] MEDS ORDERED: QUEtiapine FUMARATE 100 MG TABLET (FP) PO SCH (22:00)
[2021-04-11] MEDS: MELATONIN 5 MG TABLETS PO SCH (22:04)
[2021-04-11] MEDS: THIAMINE HCL 100 MG TABLET (FP) PO SCH (22:04)
[2021-04-12] MEDS: diazePAM 5 MG TABLET PO SCH ×2 (05:26→13:53)
[2021-04-12] MEDS: PRENATAL VITAMINS W/ FOLIC ACID TABLET (FP) PO SCH (10:10)
[2021-04-12] MEDS: NICOTINE 21 MG/24 HOURS TOPICAL PATCH TD SCH (10:10)
[2021-04-12] MEDS: NICOTINE 10 MG CARTRIDGE (INHALER) IH PRN (10:12)
[2021-04-12] MEDS: diazePAM 5 MG TABLET PO PRN (10:13)
[2021-04-12 17:48] VITALS: BP 158/83; PULSE 76; TEMP 96.8
[2021-04-13] MEDS ORDERED: diazePAM 5 MG TABLET PO SCH (06:00)
[2021-04-14] MEDS ORDERED: diazePAM 5 MG TABLET PO ONE (06:00)
== END 2021-04-12 17:45 | disposition other institution (70) | DRG 774 ==
LOC: YASAS 10:16 → Y3N 13:37
PROVIDERS: ADMIT Allergy & Immunology; ATTEND Allergy & Immunology
PROC: HZ2ZZZZ Detoxification Services for Substance Abuse Treatment (ICD-10-PCS; principal; 2021-04-10)
DX: F10.230 Alcohol dependence with withdrawal, uncomplicated (principal); F14.20 Cocaine dependence, uncomplicated; F12.20 Cannabis dependence, uncomplicated; F17.210 Nicotine dependence, cigarettes, uncomplicated; G47.00 Insomnia, unspecified; R63.4 Abnormal weight loss; Z68.28 Body mass index [BMI] 28.0-28.9, adult; Z87.820 Personal history of traumatic brain injury; Z86.2 Personal history of diseases of the blood and blood-forming organs and certain disorders involving the immune mechanism; Z91.5 Personal history of self-harm; Z91.018 Allergy to other foods
CPT/HCPCS: 36415; 80053; 80164; 85027; 86780; C9803; U0003; U0005

== ENCOUNTER 2021-10-17 10:35 | Inpatient (IN) | payer OTHER ==
[2021-10-17] MEDS ORDERED: MAGNESIUM CITRATE 300 ML BOTTLE PO PRN (11:34)
[2021-10-17] MEDS ORDERED: ACETAMINOPHEN 325 MG TABLET (FP) PO PRN ×2 (11:34)
[2021-10-17] MEDS ORDERED: MENTHOL/PHENOL 1 EACH UD MM PRN (11:34)
[2021-10-17] MEDS ORDERED: MAGNESIUM HYDROX 2400MG/30ML ORAL SUSPENSION 30 ML CUP PO PRN (11:34)
[2021-10-17] MEDS ORDERED: ONDANSETRON *ODT* 4 MG TABLET SL PRN (11:34)
[2021-10-17] MEDS ORDERED: LOPERAMIDE HCL 2 MG CAPSULE PO PRN (11:34)
[2021-10-17] MEDS ORDERED: IBUPROFEN 400 MG TABLET (FP) PO PRN (11:34)
[2021-10-17] MEDS ORDERED: BISMUTH SUBSALICYLATE 524 MG/30 ML PO PRN (11:34)
[2021-10-17] MEDS ORDERED: NALOXONE (NARCAN) HCL 4 MG/0.1 ML SPRAY NS PRN (11:34)
[2021-10-17] MEDS ORDERED: NICOTINE 10 MG CARTRIDGE (INHALER) IH PRN (11:34)
[2021-10-17] MEDS ORDERED: chlordiazePOXIDE HCL 25 MG CAPSULE PO PRN (11:34)
[2021-10-17] MEDS ORDERED: MAG HYDROX/AL HYDROX/SIMETH 30 ML UNIT-DOSE CUP PO PRN (11:34)
[2021-10-17 12:30] VITALS: BMI 25.7
[2021-10-17] MEDS: METHOCARBAMOL 500 MG TABLET PO PRN ×2 (13:23→19:24)
[2021-10-17] MEDS: hydrOXYzine PAMOATE 25 MG CAPSULE (FP) PO SCH ×3 (13:23→22:08)
[2021-10-17 16:23] LABS: HEMATOCRIT 45.2 % (35.4-49); HEMOGLOBIN 14.2 GM/dL (11.7-16.9); MCH 27.4 pg (25.7-33.7); MCHC 31.4 g/dl (32.0-35.9); MEAN CELL VOLUME 87.4 fl (80-96); MEAN PLT VOLUME 8.2 fl (7.5-11.1); PLATELET COUNT 283 10^3/uL (134-434); RBC 5.17 M/mm3 (4.00-5.60); RDW 14.9 % (11.9-15.9); WHITE BLOOD COUNT 4.5 K/mm3 (4.0-10.0)
[2021-10-17 16:41] LABS: ALBUMIN 4.3 g/dl (3.4-5.0); BLOOD UREA NITROGEN 14.8 mg/dL (7-18); CALCIUM 9.6 mg/dL (8.5-10.1)
[2021-10-17 16:44] LABS: CREATININE 1.1 mg/dL (0.55-1.3)
[2021-10-17 16:46] LABS: TOT PROT 7.6 g/dl (6.4-8.2)
[2021-10-17 16:47] LABS: BILIRUBIN,TOTAL 1.1 mg/dL (0.2-1)
[2021-10-17] MEDS: chlordiazePOXIDE HCL 25 MG CAPSULE PO SCH ×2 (17:45→22:06)
[2021-10-17] MEDS ORDERED: THIAMINE HCL 100 MG TABLET (FP) PO SCH (22:00)
[2021-10-17] MEDS ORDERED: QUEtiapine FUMARATE 100 MG TABLET (FP) PO SCH (22:00)
[2021-10-17] MEDS ORDERED: MELATONIN 5 MG TABLETS PO SCH (22:00)
[2021-10-18] MEDS: chlordiazePOXIDE HCL 25 MG CAPSULE PO SCH ×2 (05:45→10:05)
[2021-10-18] MEDS: hydrOXYzine PAMOATE 25 MG CAPSULE (FP) PO SCH ×3 (05:45→13:25)
[2021-10-18 09:19] VITALS: BP 133/78; PULSE 67; TEMP 97.1
[2021-10-18] MEDS ORDERED: PRENATAL VITAMINS W/ FOLIC ACID TABLET (FP) PO SCH (10:00)
[2021-10-18] MEDS: METHOCARBAMOL 500 MG TABLET PO PRN (10:07)
[2021-10-18] MEDS ORDERED: traZODone HCL 100 MG TABLET (FP) PO SCH (22:00)
[2021-10-19] MEDS ORDERED: chlordiazePOXIDE HCL 25 MG CAPSULE PO SCH (05:00)
[2021-10-19 12:09] LABS: SARS-CoV-2 NAA Not Detected (Not Detected)
[2021-10-20] MEDS ORDERED: chlordiazePOXIDE HCL 10 MG CAPSULE PO PRN
[2021-10-20] MEDS ORDERED: chlordiazePOXIDE HCL 10 MG CAPSULE PO SCH (05:00)
[2021-10-21] MEDS ORDERED: chlordiazePOXIDE HCL 10 MG CAPSULE PO SCH (05:00)
[2021-10-22] MEDS ORDERED: chlordiazePOXIDE HCL 10 MG CAPSULE PO ONE (05:00)
== END 2021-10-18 12:01 | disposition left against medical advice (07) | DRG 770 ==
LOC: YASAS 10:35 → Y6N 13:04 → Y3N 10-18 09:12
PROVIDERS: ADMIT Allergy & Immunology; ATTEND Allergy & Immunology
PROC: HZ2ZZZZ Detoxification Services for Substance Abuse Treatment (ICD-10-PCS; principal; 2021-10-17)
DX: F10.230 Alcohol dependence with withdrawal, uncomplicated (principal); F14.20 Cocaine dependence, uncomplicated; F12.20 Cannabis dependence, uncomplicated; F17.210 Nicotine dependence, cigarettes, uncomplicated; G47.00 Insomnia, unspecified; Z91.018 Allergy to other foods
CPT/HCPCS: 36415; 80053; 85027; 86780; C9803; U0003; U0005

== ENCOUNTER 2022-05-16 15:54 | Inpatient (IN) | payer OTHER ==
[2022-05-16 17:44] VITALS: BMI 28.3
[2022-05-16] MEDS ORDERED: MAGNESIUM CITRATE 300 ML BOTTLE PO PRN (18:45)
[2022-05-16] MEDS ORDERED: METHOCARBAMOL 500 MG TABLET PO PRN (18:45)
[2022-05-16] MEDS ORDERED: DICYCLOMINE HCL 10 MG CAPSULE PO PRN (18:45)
[2022-05-16] MEDS ORDERED: ACETAMINOPHEN 325 MG TABLET (FP) PO PRN ×2 (18:45)
[2022-05-16] MEDS ORDERED: MAG HYDROX/AL HYDROX/SIMETH 30 ML UNIT-DOSE CUP PO PRN (18:45)
[2022-05-16] MEDS ORDERED: IBUPROFEN 400 MG TABLET (FP) PO PRN (18:45)
[2022-05-16] MEDS ORDERED: BISMUTH SUBSALICYLATE 524 MG/30 ML PO PRN (18:45)
[2022-05-16] MEDS ORDERED: LOPERAMIDE HCL 2 MG CAPSULE PO PRN (18:45)
[2022-05-16] MEDS ORDERED: IBUPROFEN 600 MG TABLET (FP) PO PRN (18:45)
[2022-05-16] MEDS ORDERED: ONDANSETRON *ODT* 4 MG TABLET SL PRN (18:45)
[2022-05-16] MEDS ORDERED: BENZOCAINE/MENTHOL (CHLORASEPTIC ) LOZENGE MM PRN (18:45)
[2022-05-16] MEDS ORDERED: MAGNESIUM HYDROX 2400MG/30ML ORAL SUSPENSION 30 ML CUP PO PRN (18:45)
[2022-05-16] MEDS: NICOTINE 10 MG CARTRIDGE (INHALER) IH PRN (21:17)
[2022-05-16] MEDS: MELATONIN 5 MG TABLETS PO SCH (22:36)
[2022-05-16] MEDS: THIAMINE HCL 100 MG TABLET (FP) PO SCH (22:36)
[2022-05-16] MEDS: hydrOXYzine PAMOATE 25 MG CAPSULE (FP) PO SCH (22:36)
[2022-05-17] MEDS ORDERED: hydrOXYzine PAMOATE 25 MG CAPSULE (FP) PO ONE (01:47)
[2022-05-17] MEDS: hydrOXYzine PAMOATE 25 MG CAPSULE (FP) PO SCH ×5 (06:21→22:39)
[2022-05-17] MEDS ORDERED: chlordiazePOXIDE HCL 25 MG CAPSULE PO PRN (08:48)
[2022-05-17] MEDS: chlordiazePOXIDE HCL 25 MG CAPSULE PO SCH ×3 (10:21→22:40)
[2022-05-17] MEDS: PRENATAL VITAMINS W/ FOLIC ACID TABLET (FP) PO SCH (10:23)
[2022-05-17] MEDS: NICOTINE 14 MG/24 HOURS TOPICAL PATCH TD SCH (10:23)
[2022-05-17 11:00] LABS: CALCIUM 9.7 mg/dL (8.5-10.1)
[2022-05-17 11:01] LABS: BLOOD UREA NITROGEN 14.6 mg/dL (7-18)
[2022-05-17 11:04] LABS: CREATININE 1.1 mg/dL (0.55-1.3)
[2022-05-17 11:06] LABS: BILIRUBIN,TOTAL 0.3 mg/dL (0.2-1); HEMATOCRIT 44.4 % (35.4-49); MCH 27.7 pg (25.7-33.7); MCHC 31.6 g/dl (32.0-35.9); MEAN CELL VOLUME 87.6 fl (80-96); PLATELET COUNT 398 10^3/uL (134-434); RBC 5.07 M/mm3 (4.00-5.60); RDW 14.6 % (11.9-15.9); TOT PROT 7.3 g/dl (6.4-8.2); WHITE BLOOD COUNT 5.6 K/mm3 (4.0-10.0)
[2022-05-17] MEDS: NICOTINE 10 MG CARTRIDGE (INHALER) IH PRN (12:58)
[2022-05-17] MEDS ORDERED: QUEtiapine FUMARATE 100 MG TABLET (FP) PO SCH (22:00)
[2022-05-17] MEDS ORDERED: traZODone HCL 100 MG TABLET (FP) PO SCH (22:00)
[2022-05-17] MEDS: MELATONIN 5 MG TABLETS PO SCH (22:38)
[2022-05-17] MEDS: DIVALPROEX SODIUM 500 MG TABLET E.C. PO SCH (22:38)
[2022-05-17] MEDS: THIAMINE HCL 100 MG TABLET (FP) PO SCH (22:39)
[2022-05-18] MEDS: chlordiazePOXIDE HCL 25 MG CAPSULE PO SCH ×2 (05:36→10:15)
[2022-05-18] MEDS: hydrOXYzine PAMOATE 25 MG CAPSULE (FP) PO SCH ×3 (05:36→13:37)
[2022-05-18 06:25] VITALS: PULSE 62; RESP 18
[2022-05-18 09:01] VITALS: BP 116/50; TEMP 97.7
[2022-05-18] MEDS: PRENATAL VITAMINS W/ FOLIC ACID TABLET (FP) PO SCH (10:15)
[2022-05-18] MEDS: DIVALPROEX SODIUM 500 MG TABLET E.C. PO SCH (10:15)
[2022-05-18] MEDS: NICOTINE 14 MG/24 HOURS TOPICAL PATCH TD SCH (10:15)
[2022-05-19] MEDS ORDERED: chlordiazePOXIDE HCL 25 MG CAPSULE PO SCH (05:00)
[2022-05-20] MEDS ORDERED: chlordiazePOXIDE HCL 10 MG CAPSULE PO PRN
[2022-05-20] MEDS ORDERED: chlordiazePOXIDE HCL 10 MG CAPSULE PO SCH (05:00)
[2022-05-21] MEDS ORDERED: chlordiazePOXIDE HCL 10 MG CAPSULE PO SCH (05:00)
[2022-05-22] MEDS ORDERED: chlordiazePOXIDE HCL 10 MG CAPSULE PO ONE (05:00)
== END 2022-05-18 11:15 | disposition left against medical advice (07) | DRG 770 ==
LOC: YASAS 15:54 → Y3N 19:04
PROVIDERS: ADMIT Allergy & Immunology; ATTEND Surgery
PROC: HZ2ZZZZ Detoxification Services for Substance Abuse Treatment (ICD-10-PCS; principal; 2022-05-16)
DX: F10.230 Alcohol dependence with withdrawal, uncomplicated (principal); F14.20 Cocaine dependence, uncomplicated; F12.20 Cannabis dependence, uncomplicated; F17.210 Nicotine dependence, cigarettes, uncomplicated; F19.282 Other psychoactive substance dependence with psychoactive substance-induced sleep disorder; F31.9 Bipolar disorder, unspecified; Z86.2 Personal history of diseases of the blood and blood-forming organs and certain disorders involving the immune mechanism; Z87.820 Personal history of traumatic brain injury; Z28.310 Unvaccinated for COVID-19; Z28.9 Immunization not carried out for unspecified reason
CPT/HCPCS: 36415; 80053; 80164; 85027; 86780; 87811; C9803-CS; U0003; U0005

== ENCOUNTER 2022-11-10 10:23 | Inpatient (IN) | payer OTHER ==
[2022-11-10 10:41] VITALS: BMI 26.6
[2022-11-10] MEDS ORDERED: guaiFENesin 600 MG TABLET.ER (FP) PO PRN (11:57)
[2022-11-10] MEDS ORDERED: BENZONATATE 200 MG CAPSULE PO PRN (11:57)
[2022-11-10] MEDS ORDERED: MAG HYDROX/AL HYDROX/SIMETH 30 ML UNIT-DOSE CUP PO PRN (11:57)
[2022-11-10] MEDS ORDERED: BENZOCAINE/MENTHOL (CHLORASEPTIC ) LOZENGE MM PRN (11:57)
[2022-11-10] MEDS ORDERED: MAGNESIUM HYDROX 2400MG/30ML ORAL SUSPENSION 30 ML CUP PO PRN (11:57)
[2022-11-10] MEDS ORDERED: ONDANSETRON *ODT* 4 MG TABLET SL PRN (11:57)
[2022-11-10] MEDS ORDERED: POLYETHYLENE GLYCOL (HEALTHYLAX) 3350 17 GM PACKET PO PRN (11:57)
[2022-11-10] MEDS ORDERED: DICYCLOMINE HCL 10 MG CAPSULE PO PRN (11:57)
[2022-11-10] MEDS ORDERED: IBUPROFEN 600 MG TABLET (FP) PO PRN (11:57)
[2022-11-10] MEDS ORDERED: IBUPROFEN 400 MG TABLET (FP) PO PRN (11:57)
[2022-11-10] MEDS ORDERED: LOPERAMIDE HCL 2 MG CAPSULE PO PRN (11:57)
[2022-11-10] MEDS ORDERED: NALOXONE HCL (KLOXXADO) 8 MG SPRAY NS PRN (11:57)
[2022-11-10] MEDS ORDERED: BISMUTH SUBSALICYLATE 524 MG/30 ML PO PRN (11:57)
[2022-11-10] MEDS ORDERED: NALOXONE HCL 0.4 MG/ML VIAL IM PRN (11:57)
[2022-11-10] MEDS ORDERED: ACETAMINOPHEN 325 MG TABLET (FP) PO PRN (11:57)
[2022-11-10] MEDS: chlordiazePOXIDE HCL 25 MG CAPSULE PO PRN (14:04)
[2022-11-10] MEDS: NICOTINE 10 MG CARTRIDGE (INHALER) IH PRN (15:11)
[2022-11-10] MEDS: chlordiazePOXIDE HCL 25 MG CAPSULE PO SCH ×2 (17:30→22:30)
[2022-11-10] MEDS: THIAMINE HCL 100 MG TABLET (FP) PO SCH (22:31)
[2022-11-10] MEDS: MELATONIN 5 MG TABLETS PO SCH (22:31)
[2022-11-10] MEDS: hydrOXYzine PAMOATE 25 MG CAPSULE (FP) PO PRN (22:31)
[2022-11-11] MEDS: chlordiazePOXIDE HCL 25 MG CAPSULE PO SCH ×4 (05:49→22:13)
[2022-11-11] MEDS: PRENATAL VITAMINS W/ FOLIC ACID TABLET (FP) PO SCH (10:34)
[2022-11-11] MEDS: NICOTINE 21 MG/24 HOURS TOPICAL PATCH TD SCH (10:36)
[2022-11-11] MEDS ORDERED: QUEtiapine FUMARATE 100 MG TABLET (FP) PO SCH (22:00)
[2022-11-11] MEDS: THIAMINE HCL 100 MG TABLET (FP) PO SCH (22:14)
[2022-11-11] MEDS: MELATONIN 5 MG TABLETS PO SCH (22:15)
[2022-11-11] MEDS: DIVALPROEX SODIUM 500 MG TABLET E.C. PO SCH (22:15)
[2022-11-12] MEDS: chlordiazePOXIDE HCL 25 MG CAPSULE PO SCH ×4 (05:40→22:33)
[2022-11-12] MEDS: NICOTINE 21 MG/24 HOURS TOPICAL PATCH TD SCH (10:05)
[2022-11-12] MEDS: PRENATAL VITAMINS W/ FOLIC ACID TABLET (FP) PO SCH (10:05)
[2022-11-12 11:27] LABS: HEMOGLOBIN 13.2 GM/dL (11.7-16.9); MCH 27.4 pg (25.7-33.7); MCHC 32.2 g/dl (32.0-35.9); MEAN CELL VOLUME 85.3 fl (80-96); PLATELET COUNT 305 10^3/uL (134-434); RBC 4.81 M/mm3 (4.00-5.60); RDW 14.9 % (11.9-15.9); WHITE BLOOD COUNT 4.8 K/mm3 (4.0-10.0)
[2022-11-12 11:32] LABS: ALBUMIN 3.8 g/dl (3.4-5.0); BLOOD UREA NITROGEN 18.3 mg/dL (7-18)
[2022-11-12 11:34] LABS: CALCIUM 9.4 mg/dL (8.5-10.1)
[2022-11-12 11:35] LABS: CREATININE 1.1 mg/dL (0.55-1.3)
[2022-11-12 11:38] LABS: BILIRUBIN,TOTAL 0.2 mg/dL (0.2-1)
[2022-11-12 11:40] LABS: TOT PROT 6.8 g/dl (6.4-8.2)
[2022-11-12] MEDS: chlordiazePOXIDE HCL 25 MG CAPSULE PO PRN (11:48)
[2022-11-12] MEDS: NICOTINE 10 MG CARTRIDGE (INHALER) IH PRN (20:58)
[2022-11-12] MEDS: DIVALPROEX SODIUM 500 MG TABLET E.C. PO SCH (22:33)
[2022-11-12] MEDS: QUEtiapine FUMARATE 200 MG TABLET PO SCH (22:33)
[2022-11-12] MEDS: MELATONIN 5 MG TABLETS PO SCH (22:33)
[2022-11-12] MEDS: THIAMINE HCL 100 MG TABLET (FP) PO SCH (22:33)
[2022-11-13] MEDS ORDERED: chlordiazePOXIDE HCL 10 MG CAPSULE PO PRN
[2022-11-13] MEDS: chlordiazePOXIDE HCL 10 MG CAPSULE PO SCH ×4 (05:34→22:02)
[2022-11-13] MEDS: NICOTINE 21 MG/24 HOURS TOPICAL PATCH TD SCH (10:29)
[2022-11-13] MEDS: PRENATAL VITAMINS W/ FOLIC ACID TABLET (FP) PO SCH (10:29)
[2022-11-13] MEDS: hydrOXYzine PAMOATE 25 MG CAPSULE (FP) PO PRN (17:16)
[2022-11-13] MEDS: THIAMINE HCL 100 MG TABLET (FP) PO SCH (22:02)
[2022-11-13] MEDS: DIVALPROEX SODIUM 500 MG TABLET E.C. PO SCH (22:02)
[2022-11-13] MEDS: QUEtiapine FUMARATE 200 MG TABLET PO SCH (22:02)
[2022-11-13] MEDS: MELATONIN 5 MG TABLETS PO SCH (22:04)
[2022-11-14] MEDS: chlordiazePOXIDE HCL 10 MG CAPSULE PO SCH ×2 (05:50→17:23)
[2022-11-14] MEDS: PRENATAL VITAMINS W/ FOLIC ACID TABLET (FP) PO SCH (10:16)
[2022-11-14] MEDS: NICOTINE 21 MG/24 HOURS TOPICAL PATCH TD SCH (10:16)
[2022-11-14 11:45] LABS: EPI CELLS 10 /uL (0-25.1); HYALINE CASTS 1 /uL (0-3.1); URINE APPEARANCE CLEAR; URINE BACTERIA 6 /uL (0-1359); URINE BILIRUBIN NEGATIVE (NEGATIVE); URINE COLOR YELLOW; URINE GLUCOSE (UA) NEGATIVE (NEGATIVE); URINE KETONE NEGATIVE (NEGATIVE); URINE LEUK ESTERASE 1+ (NEGATIVE); URINE NITRITE NEGATIVE (NEGATIVE); URINE PROTEIN NEGATIVE (NEGATIVE); URINE RBC 3 /uL (0-23.9); URINE UROBILINOGEN 0.2 mg/dL (0.2-1.0); URINE WBC 75 /uL (0-25.8)
[2022-11-14] MEDS: METHOCARBAMOL 500 MG TABLET PO PRN (17:27)
[2022-11-14] MEDS: hydrOXYzine PAMOATE 25 MG CAPSULE (FP) PO PRN (17:27)
[2022-11-14] MEDS: QUEtiapine FUMARATE 200 MG TABLET PO SCH (22:10)
[2022-11-14] MEDS: DIVALPROEX SODIUM 500 MG TABLET E.C. PO SCH (22:10)
[2022-11-14] MEDS: THIAMINE HCL 100 MG TABLET (FP) PO SCH (22:10)
[2022-11-14] MEDS: MELATONIN 5 MG TABLETS PO SCH (22:10)
[2022-11-15] MEDS: METHOCARBAMOL 500 MG TABLET PO PRN (02:11)
[2022-11-15] MEDS ORDERED: chlordiazePOXIDE HCL 10 MG CAPSULE PO ONE (05:00)
[2022-11-15] MEDS: NICOTINE 10 MG CARTRIDGE (INHALER) IH PRN (05:45)
[2022-11-15 09:37] VITALS: RESP 18
[2022-11-15] MEDS: PRENATAL VITAMINS W/ FOLIC ACID TABLET (FP) PO SCH (10:14)
[2022-11-15] MEDS: NICOTINE 21 MG/24 HOURS TOPICAL PATCH TD SCH (10:14)
[2022-11-15 13:02] VITALS: BP 155/78; PULSE 78; TEMP 96.8
== END 2022-11-15 15:55 | disposition home or self-care (01) | DRG 774 ==
LOC: YASAS 10:23 → Y6N 12:34
PROVIDERS: ADMIT Allergy & Immunology; ATTEND Surgery
PROC: HZ2ZZZZ Detoxification Services for Substance Abuse Treatment (ICD-10-PCS; principal; 2022-11-15)
DX: F10.230 Alcohol dependence with withdrawal, uncomplicated (principal); F14.20 Cocaine dependence, uncomplicated; F12.20 Cannabis dependence, uncomplicated; F17.210 Nicotine dependence, cigarettes, uncomplicated; F19.282 Other psychoactive substance dependence with psychoactive substance-induced sleep disorder; F19.24 Other psychoactive substance dependence with psychoactive substance-induced mood disorder; Z87.820 Personal history of traumatic brain injury; Z28.310 Unvaccinated for COVID-19; Z28.9 Immunization not carried out for unspecified reason
CPT/HCPCS: 36415; 80053; 80164; 81003; 85027; 86780; 87811; C9803-CS; U0003; U0005

== ENCOUNTER 2023-03-14 14:33 | Inpatient (IN) | payer OTHER ==
[2023-03-14 14:55] VITALS: BMI 26.6
[2023-03-14] MEDS ORDERED: MAG HYDROX/AL HYDROX/SIMETH 30 ML UNIT-DOSE CUP PO PRN (15:25)
[2023-03-14] MEDS ORDERED: POLYETHYLENE GLYCOL (HEALTHYLAX) 3350 17 GM PACKET PO PRN (15:25)
[2023-03-14] MEDS ORDERED: ACETAMINOPHEN 325 MG TABLET (FP) PO PRN (15:25)
[2023-03-14] MEDS ORDERED: NALOXONE HCL 0.4 MG/ML VIAL IM PRN (15:25)
[2023-03-14] MEDS ORDERED: ONDANSETRON *ODT* 4 MG TABLET SL PRN (15:25)
[2023-03-14] MEDS ORDERED: IBUPROFEN 600 MG TABLET (FP) PO PRN (15:25)
[2023-03-14] MEDS ORDERED: BISMUTH SUBSALICYLATE 524 MG/30 ML PO PRN (15:25)
[2023-03-14] MEDS ORDERED: BENZONATATE 200 MG CAPSULE PO PRN (15:25)
[2023-03-14] MEDS ORDERED: IBUPROFEN 400 MG TABLET (FP) PO PRN (15:25)
[2023-03-14] MEDS ORDERED: NALOXONE HCL (KLOXXADO) 8 MG SPRAY NS PRN (15:25)
[2023-03-14] MEDS ORDERED: MAGNESIUM HYDROX 2400MG/30ML ORAL SUSPENSION 30 ML CUP PO PRN (15:25)
[2023-03-14] MEDS ORDERED: LOPERAMIDE HCL 2 MG CAPSULE PO PRN (15:25)
[2023-03-14] MEDS ORDERED: guaiFENesin 600 MG TABLET.ER (FP) PO PRN (15:25)
[2023-03-14] MEDS ORDERED: BENZOCAINE/MENTHOL (CHLORASEPTIC ) LOZENGE MM PRN (15:25)
[2023-03-14] MEDS ORDERED: DICYCLOMINE HCL 10 MG CAPSULE PO PRN (15:25)
[2023-03-14] MEDS: NICOTINE 21 MG/24 HOURS TOPICAL PATCH TD SCH (16:29)
[2023-03-14] MEDS: PRENATAL VITAMINS W/ FOLIC ACID TABLET (FP) PO SCH (16:29)
[2023-03-14] MEDS ORDERED: NICOTINE 21 MG/24 HOURS TOPICAL PATCH ONE (16:34)
[2023-03-14] MEDS ORDERED: PRENATAL VITAMINS W/ FOLIC ACID TABLET (FP) PO ONE (16:34)
[2023-03-14] MEDS: hydrOXYzine PAMOATE 25 MG CAPSULE (FP) PO PRN (16:45)
[2023-03-14] MEDS ORDERED: hydrOXYzine PAMOATE 25 MG CAPSULE (FP) PO ONE (16:52)
[2023-03-14] MEDS: THIAMINE HCL 100 MG TABLET (FP) PO SCH (22:04)
[2023-03-14] MEDS: chlordiazePOXIDE HCL 25 MG CAPSULE PO SCH (22:04)
[2023-03-14] MEDS: MELATONIN 5 MG TABLETS PO SCH (22:07)
[2023-03-15] MEDS: chlordiazePOXIDE HCL 25 MG CAPSULE PO SCH ×4 (05:15→22:39)
[2023-03-15] MEDS: PRENATAL VITAMINS W/ FOLIC ACID TABLET (FP) PO SCH (10:36)
[2023-03-15] MEDS: METHOCARBAMOL 500 MG TABLET PO PRN (10:36)
[2023-03-15] MEDS: hydrOXYzine PAMOATE 25 MG CAPSULE (FP) PO PRN (10:36)
[2023-03-15] MEDS: DIVALPROEX SODIUM 500 MG TABLET E.C. PO SCH ×2 (10:36→22:41)
[2023-03-15] MEDS: NICOTINE 21 MG/24 HOURS TOPICAL PATCH TD SCH (10:37)
[2023-03-15 10:41] LABS: HEMATOCRIT 41.5 % (35.4-49); HEMOGLOBIN 13.2 GM/dL (11.7-16.9); MCHC 31.8 g/dl (32.0-35.9); MEAN CELL VOLUME 88.1 fl (80-96); MEAN PLT VOLUME 8.3 fl (7.5-11.1); PLATELET COUNT 289 10^3/uL (134-434); RBC 4.71 M/mm3 (4.00-5.60); RDW 14.7 % (11.9-15.9); WHITE BLOOD COUNT 5.5 K/mm3 (4.0-10.0)
[2023-03-15 11:16] LABS: POTASSIUM 4.6 mmol/L (3.5-5.1)
[2023-03-15 11:24] LABS: CALCIUM 9.1 mg/dL (8.5-10.1)
[2023-03-15 11:25] LABS: ALBUMIN 3.5 g/dl (3.4-5.0); BLOOD UREA NITROGEN 13.9 mg/dL (7-18)
[2023-03-15 11:28] LABS: CREATININE 0.9 mg/dL (0.55-1.3)
[2023-03-15 11:29] LABS: BILIRUBIN,TOTAL 0.5 mg/dL (0.2-1)
[2023-03-15 11:30] LABS: TOT PROT 6.6 g/dl (6.4-8.2)
[2023-03-15] MEDS: THIAMINE HCL 100 MG TABLET (FP) PO SCH (22:39)
[2023-03-15] MEDS: MELATONIN 5 MG TABLETS PO SCH (22:39)
[2023-03-15] MEDS: QUEtiapine FUMARATE 100 MG TABLET (FP) PO SCH (22:39)
[2023-03-16] MEDS: chlordiazePOXIDE HCL 25 MG CAPSULE PO SCH ×4 (05:36→22:51)
[2023-03-16] MEDS: hydrOXYzine PAMOATE 25 MG CAPSULE (FP) PO PRN (10:55)
[2023-03-16] MEDS: PRENATAL VITAMINS W/ FOLIC ACID TABLET (FP) PO SCH (10:55)
[2023-03-16] MEDS: NICOTINE 21 MG/24 HOURS TOPICAL PATCH TD SCH (10:55)
[2023-03-16] MEDS: DIVALPROEX SODIUM 500 MG TABLET E.C. PO SCH ×2 (10:55→22:51)
[2023-03-16] MEDS: METHOCARBAMOL 500 MG TABLET PO PRN (12:32)
[2023-03-16] MEDS: THIAMINE HCL 100 MG TABLET (FP) PO SCH (22:51)
[2023-03-16] MEDS: QUEtiapine FUMARATE 100 MG TABLET (FP) PO SCH (22:52)
[2023-03-16] MEDS: MELATONIN 5 MG TABLETS PO SCH (23:10)
[2023-03-17] MEDS: chlordiazePOXIDE HCL 10 MG CAPSULE PO SCH ×2 (05:07→10:32)
[2023-03-17] MEDS: hydrOXYzine PAMOATE 25 MG CAPSULE (FP) PO PRN ×2 (05:07→10:31)
[2023-03-17 09:37] VITALS: BP 135/80; PULSE 79; RESP 18; TEMP 97.6
[2023-03-17] MEDS: DIVALPROEX SODIUM 500 MG TABLET E.C. PO SCH (10:31)
[2023-03-17] MEDS: METHOCARBAMOL 500 MG TABLET PO PRN (10:31)
[2023-03-17] MEDS: PRENATAL VITAMINS W/ FOLIC ACID TABLET (FP) PO SCH (10:31)
[2023-03-17] MEDS: NICOTINE 21 MG/24 HOURS TOPICAL PATCH TD SCH (10:32)
[2023-03-18] MEDS ORDERED: chlordiazePOXIDE HCL 10 MG CAPSULE PO SCH (05:00)
[2023-03-19] MEDS ORDERED: chlordiazePOXIDE HCL 10 MG CAPSULE PO ONE (05:00)
== END 2023-03-17 12:39 | disposition left against medical advice (07) | DRG 770 ==
LOC: YASAS 14:33 → Y6N 15:29
PROVIDERS: ADMIT Allergy & Immunology; ATTEND Surgery
PROC: HZ2ZZZZ Detoxification Services for Substance Abuse Treatment (ICD-10-PCS; principal; 2023-03-14)
DX: F10.230 Alcohol dependence with withdrawal, uncomplicated (principal); F14.20 Cocaine dependence, uncomplicated; F12.20 Cannabis dependence, uncomplicated; F17.210 Nicotine dependence, cigarettes, uncomplicated; F25.0 Schizoaffective disorder, bipolar type; F19.282 Other psychoactive substance dependence with psychoactive substance-induced sleep disorder; F19.24 Other psychoactive substance dependence with psychoactive substance-induced mood disorder; Z86.2 Personal history of diseases of the blood and blood-forming organs and certain disorders involving the immune mechanism; Z87.820 Personal history of traumatic brain injury; Z28.310 Unvaccinated for COVID-19; Z28.9 Immunization not carried out for unspecified reason; F91.8 Other conduct disorders; Z91.199 Patient's noncompliance with other medical treatment and regimen due to unspecified reason
CPT/HCPCS: 36415; 80053; 85027; 86780; 87635; 87811

== ENCOUNTER 2023-09-19 12:48 | Inpatient (IN) | payer OTHER ==
[2023-09-19 13:03] VITALS: BMI 26.7
[2023-09-19] MEDS ORDERED: MAG HYDROX/AL HYDROX/SIMETH 30 ML UNIT-DOSE CUP PO PRN (13:30)
[2023-09-19] MEDS ORDERED: NICOTINE POLACRILEX 2 MG GUM BUC PRN (13:30)
[2023-09-19] MEDS ORDERED: ONDANSETRON *ODT* 4 MG TABLET SL PRN (13:30)
[2023-09-19] MEDS ORDERED: MAGNESIUM HYDROX 2400MG/30ML ORAL SUSPENSION 30 ML CUP PO PRN (13:30)
[2023-09-19] MEDS ORDERED: METHOCARBAMOL 500 MG TABLET PO PRN (13:30)
[2023-09-19] MEDS ORDERED: hydrOXYzine PAMOATE 25 MG CAPSULE (FP) PO PRN (13:30)
[2023-09-19] MEDS ORDERED: IBUPROFEN 400 MG TABLET (FP) PO PRN (13:30)
[2023-09-19] MEDS ORDERED: IBUPROFEN 600 MG TABLET (FP) PO PRN (13:30)
[2023-09-19] MEDS ORDERED: guaiFENesin 600 MG TABLET.ER (FP) PO PRN (13:30)
[2023-09-19] MEDS ORDERED: BENZONATATE 200 MG CAPSULE PO PRN (13:30)
[2023-09-19] MEDS ORDERED: BISMUTH SUBSALICYLATE 524 MG/30 ML PO PRN (13:30)
[2023-09-19] MEDS ORDERED: NALOXONE HCL (KLOXXADO) 8 MG SPRAY NS PRN (13:30)
[2023-09-19] MEDS ORDERED: NALOXONE HCL 0.4 MG/ML VIAL IM PRN (13:30)
[2023-09-19] MEDS ORDERED: POLYETHYLENE GLYCOL (HEALTHYLAX) 3350 17 GM PACKET PO PRN (13:30)
[2023-09-19] MEDS ORDERED: LOPERAMIDE HCL 2 MG CAPSULE PO PRN (13:30)
[2023-09-19] MEDS ORDERED: ACETAMINOPHEN 325 MG TABLET (FP) PO PRN (13:30)
[2023-09-19] MEDS ORDERED: BENZOCAINE/MENTHOL (CHLORASEPTIC ) LOZENGE MM PRN (13:30)
[2023-09-19] MEDS ORDERED: DICYCLOMINE HCL 10 MG CAPSULE PO PRN (13:30)
[2023-09-19] MEDS ORDERED: MELATONIN 5 MG TABLETS PO SCH (22:00)
[2023-09-19] MEDS ORDERED: THIAMINE HCL 100 MG TABLET (FP) PO SCH (22:00)
[2023-09-20 09:33] VITALS: BP 124/68; PULSE 87; RESP 16; TEMP 97.7
[2023-09-20] MEDS ORDERED: PRENATAL VITAMINS W/ FOLIC ACID TABLET (FP) PO SCH (10:00)
[2023-09-20] MEDS ORDERED: NICOTINE 14 MG/24 HOURS TOPICAL PATCH TD SCH (10:00)
[2023-09-20 11:16] LABS: HEMATOCRIT 41.8 % (35.4-49); HEMOGLOBIN 13.6 GM/dL (11.7-16.9); MCH 28.2 pg (25.7-33.7); MCHC 32.6 g/dl (32.0-35.9); MEAN CELL VOLUME 86.5 fl (80-96); MEAN PLT VOLUME 7.8 fl (7.5-11.1); PLATELET COUNT 327 10^3/uL (134-434); RBC 4.83 M/mm3 (4.00-5.60); RDW 14.4 % (11.9-15.9); WHITE BLOOD COUNT 4.2 K/mm3 (4.0-10.0)
[2023-09-20 11:57] LABS: CHLORIDE 105 mmol/L (98-107); POTASSIUM 3.8 mmol/L (3.5-5.1); SODIUM 138 mmol/L (136-145)
[2023-09-20 12:01] LABS: BLOOD UREA NITROGEN 15.4 mg/dL (7-18); GLUCOSE,RANDOM 102 mg/dL (74-106)
[2023-09-20 12:04] LABS: SGOT/AST 12 U/L (15-37)
[2023-09-20 12:05] LABS: ALBUMIN 3.7 g/dl (3.4-5.0); ANION GAP 6 mmol/L (4-13); CALCIUM 8.7 mg/dL (8.5-10.1); CO2 27 mmol/L (21-32)
[2023-09-20 12:06] LABS: BILIRUBIN,TOTAL 0.4 mg/dL (0.2-1)
[2023-09-20 12:07] LABS: ALK PHOS 69 U/L (45-117)
[2023-09-20 12:08] LABS: SGPT/ALT 36 U/L (13-61)
[2023-09-20 12:09] LABS: TOT PROT 6.8 g/dl (6.4-8.2)
[2023-09-20 13:31] LABS: HIV INTERPRETATION NEGATIVE (NEGATIVE)
== END 2023-09-20 12:47 | disposition home or self-care (01) | DRG 774 ==
LOC: YASAS 12:48 → Y3N 13:43
PROVIDERS: ADMIT Allergy & Immunology; ATTEND Allergy & Immunology
PROC: HZ2ZZZZ Detoxification Services for Substance Abuse Treatment (ICD-10-PCS; principal; 2023-09-19)
DX: F10.20 Alcohol dependence, uncomplicated (principal); F14.20 Cocaine dependence, uncomplicated; F12.20 Cannabis dependence, uncomplicated; F17.210 Nicotine dependence, cigarettes, uncomplicated; F31.9 Bipolar disorder, unspecified; F41.9 Anxiety disorder, unspecified; U07.1 COVID-19; Z28.310 Unvaccinated for COVID-19; Z28.9 Immunization not carried out for unspecified reason
CPT/HCPCS: 36415; 80053; 80307; 85027; 86780; 87389; 87635; 87811